=== PATIENT | male | born 1985 | race Caucasian/White ===

== ENCOUNTER → 2018-11-29 | Outpatient (CLI) | payer OTHER ==
--- NOTE | 2018-11-29 21:37 | MR ---
EXAMINATION TYPE: MR knee LT wo con DATE OF EXAM: 11/29/2018 COMPARISON: Plain film 11/14/2018 HISTORY: Lt knee pain TECHNIQUE: Multiplanar, multisequence imaging of the left knee is performed without IV contrast. FINDINGS: MEDIAL MENISCUS: Anterior and posterior horns are intact without tear. LATERAL MENISCUS: Anterior and posterior horns are intact without tear. CRUCIATE LIGAMENTS: The anterior and posterior cruciate ligaments are intact and unremarkable. COLLATERAL LIGAMENTS: The medial collateral ligament is intact and unremarkable. At the level of the popliteus tendon there is some focal probable reactive marrow signal change in t he lateral femoral condyle, some local fluid is present, increased signal present within the popliteu s tendon. EXTENSOR MECHANISM: Visualized quadriceps and patellar tendons are intact. EFFUSION: No significant suprapatellar joint effusion. POPLITEAL CYST: No popliteal/berman cyst. TRICOMPARTMENT SPACES: Normal CARTILAGE: Maintained BONE MARROW SIGNAL: Serpiginous peripheral medullary low signal encompasses foci of fat signal centra lly within the distal metaphyseal left femur and proximal metaphyseal tibia on T1-weighted images, pe ripheral high signal with underlying low signal on fat-saturated T2 sequences with mixed high and low signal consistent with bone infarcts. OTHER: No additional significant abnormality is appreciated. IMPRESSION: Osteonecrosis within the distal femur and proximal tibia. Suspect popliteus tendinosis or possibly pa rtial tear laterally with some local fluid and reactive marrow signal change
== END | disposition home or self-care (01) ==
LOC: RADMRIMAIN 18:32
PROVIDERS: ATTEND Orthopaedic Surgery
DX: M87.852 Other osteonecrosis, left femur (principal); M87.862 Other osteonecrosis, left tibia

== ENCOUNTER → 2019-02-02 | Outpatient (CLI) | payer OTHER ==
[2019-02-02 10:36] LABS: Potassium 4.6 mmol/L (3.5-5.1)
[2019-02-02 10:42] LABS: Basophils # (A) 0.1 k/uL (0-0.2); Basophils % (A) 2 %; Eosinophils # (A) 0.1 k/uL (0-0.7); Eosinophils % (A) 2 %; HCT 38.8 % (39.0-53.0); Lymphocytes # (A) 1.2 k/uL (1.0-4.8); Lymphocytes % (A) 19 %; MCH 40.3 pg (25.0-35.0); MCV 94.9 fL (80.0-100.0); Mean Platelet Volume 7.5; Monocytes # (A) 0.2 k/uL (0-1.0); Monocytes % (A) 3 %; Neutrophils # (A) 4.5 k/uL (1.3-7.7); Neutrophils % (A) 74 %; Platelet Count 309 k/uL (150-450); RBC 4.09 m/uL (4.30-5.90); RDW 12.9 % (11.5-15.5); WBC 6.2 k/uL (3.8-10.6)
[2019-02-02 10:43] LABS: HGB 14.4 gm/dL (13.0-17.5); MCHC 37.1 g/dL (31.0-37.0)
== END | disposition home or self-care (01) ==
LOC: LABPAT 10:06
PROVIDERS: ATTEND Orthopaedic Surgery
DX: Z01.812 Encounter for preprocedural laboratory examination (principal); M23.92 Unspecified internal derangement of left knee
CPT/HCPCS: 80051; 85025

== ENCOUNTER 2019-02-05 12:49 | Day surgery (SDC) | payer OTHER ==
[2019-01-26 14:30] VITALS: BMI 28.0
--- NOTE | 2019-02-04 21:38 | HP ---
HISTORY AND PHYSICAL DATE OF SURGERY: 02/05/2019 Lopez Schmid is a 33-year-old patient seen with progressive left knee pain. We discussed options for treatment. He elected for left knee arthroscopy. Consent was obtained his. PAST MEDICAL HISTORY: Hypertension. PAST SURGICAL HISTORY: Noncontributory. DAILY MEDICATIONS: Antihypertensive. ALLERGIES: None. SOCIAL HISTORY: Denies tobacco use. PHYSICAL EXAMINATION: Evaluation of his left knee, range of motion is -3 to 120. Tenderness along the medial and lateral joint lines. Positive medial Liam's. Positive lateral Liam's. Ligaments stable. Hip rotation without pain. Distal neurovascular exam is intact. Left knee radiographs revealed mild osteoarthritic changes. Left knee MRI revealed osteonecrosis of the distal femur and tibial plateau. IMPRESSION: Internal derangement, left knee with osteochondral tear versus meniscal tear. PLAN: Left knee arthroscopy with partial meniscectomy versus chondroplasty and debridement. MMODL / IJN: [id number] /
[~2019-02-05 12:49] MED LIST: DEXAMETHASONE SOD PHOSPHATE 10 MG/ML 1 ML VIAL IV ONE; HYDROmorphone 0.5 MG/0.5 ML SYRINGE IVP PRN; LACTATED RINGERS 1,000 ML IV SCH; MIDAZOLAM 2 MG/2 ML VIAL IV PRN; ONDANSETRON 4 MG/2 ML VIAL IVP ONE
[2019-02-05] MEDS ORDERED: LIDOCAINE 1% 20 ML VIAL (10MG/ML) FOR IV START INTRADERMA ONE (13:20)
[2019-02-05] MEDS ORDERED: MIDAZOLAM 2 MG/2 ML VIAL IVP ONE ×2 (13:32→13:40)
[2019-02-05] MEDS ORDERED: PROPOFOL 10 MG/ML 20 ML VIAL IV ONE (15:01)
[2019-02-05] MEDS ORDERED: SUCCINYLCHOLINE CHLORIDE 100 MG/5 ML SYR IV ONE (15:01)
[2019-02-05] MEDS ORDERED: BUPIVACAIN-EPI 0.25%-1:200,000 30 ML VIAL INTRAARTIC ONE ×2 (15:01→15:34)
[2019-02-05] MEDS ORDERED: fentaNYL (PF) 50 MCG/ML 2 ML AMP ONE (15:01)
[2019-02-05] MEDS ORDERED: LIDOCAINE 1% INJ 10MG/ML (20 ML MDV) ONE (15:01)
[2019-02-05] MEDS ORDERED: MIDAZOLAM 2 MG/2 ML VIAL ONE (15:01)
[2019-02-05 15:44] VITALS: RESP 16; TEMP 97.7
--- NOTE | 2019-02-05 15:52 | P.OP ---
Date of Procedure: 02/05/19 Preoperative Diagnosis: Internal derangement left knee Postoperative Diagnosis: 1. Tear medial meniscus left knee 2. Medial plica left knee 3. Reactive synovitis medial, lateral and suprapatellar compartments left knee Procedure(s) Performed: 1. Arthroscopic partial medial meniscectomy left knee 2. Arthroscopic resection medial plica left knee 3. Arthroscopic partial synovectomy medial, lateral and suprapatellar compartments left knee Anesthesia: PARVEENA, local Surgeon: Rony Thomas Estimated Blood Loss (ml): 7 Pathology: none sent Condition: stable Disposition: PACU Indications for Procedure: 33-year-old patient seen with progressive left knee pain. After discussing options he elected to proceed with arthroscopy. Operative Findings: See description of procedure Description of Procedure: Patient was taken to the operative suite. Patient underwent a general anesthetic by the department of anesthesia. Patient was given preoperative antibiotics. The left lower extremity was placed in a well-padded arthroscopic leg armijo. The left leg was prepped and draped in the normal sterile orthopedic fashion. A lateral parapatellar and suprapatellar incision was made. Trochars were inserted. Arthroscopy was initiated. Suprapatellar pouch revealed diffuse thick reactive synovitis. The patellofemoral joint appeared to articulate congruently. There was grade 1 chondromalacia of the femoral sulcus. The scope was guided into the medial gutter. There was a medial plica. It did impinge along the medial femoral condyle. Range of motion. The scope was then guided into the medial compartment. A medial parapatellar incision was made. Trocar inserted followed by probe. There was a radial tear posterior horn medial meniscus. There was thick reactive synovitis anteriorly. I performed a partial medial meniscectomy. I performed a partial synovectomy decompressing the reactive synovitis. The residual meniscus was stable. There was good decompression of the synovitis. Scope and probe were then guided into the intercondylar notch. Cruciates were identified, probed and found to be stable. The scope and probe were then guided into lateral compartment. The lateral meniscus was probed and found to be stable. There was thick reactive synovitis anteriorly. There was no significant chondromalacia present. I introduced a motorized shaver and performed a partial synovectomy decompressing the reactive synovitis. The shaver was removed. There was good decompression of the synovitis. The scope was in guided back into the suprapatellar compartment. I introduced a motorized shaver into the suprapatellar compartment. I debrided some piecemeal fragments of meniscus I encountered. I performed a partial synovectomy decompressing the reactive synovitis. I resected that medial plica. The shaver was removed. I took the knee through range of motion. There was good complete resection of plica. There was good decompression of synovitis. I took one more look on the entire knee, no residual debris. Instruments were now removed from the joint. The joint was infiltrated with .25% Marcaine. Steri-Strips were applied to the portal sites. Sterile dressings were applied. The patient was placed into a HUBERT hose. No tourniquet was utilized. The patient was awakened, transferred to a bed and taken to recovery stable satisfactory condition.
[2019-02-05 17:07] VITALS: BP 146/90; PULSE 67
== END 2019-02-05 17:19 | disposition home or self-care (01) ==
LOC: OR 12:49
PROVIDERS: ATTEND Orthopaedic Surgery
DX: M23.222 Derangement of posterior horn of medial meniscus due to old tear or injury, left knee (principal); M67.52 Plica syndrome, left knee; M65.862 Other synovitis and tenosynovitis, left lower leg; I10 Essential (primary) hypertension; Z79.899 Other long term (current) drug therapy
CPT/HCPCS: 29881; J2250; J1100; J0690; J2405

== ENCOUNTER 2019-12-28 15:12 | Emergency (ER) | payer OTHER ==
[2019-12-28] MEDS ORDERED: ACETAMINOPHEN TAB 500 MG TAB PO STA (15:55)
--- NOTE | 2019-12-28 16:02 | ED ---
General Adult HPI - General Source: patient, RN notes reviewed, old records reviewed Mode of arrival: ambulatory Limitations: no limitations <Garo Burnham - Last Filed: 12/28/19 19:34> <Alexis Chun - Last Filed: 12/29/19 14:48> - General Chief complaint: Shortness of Breath Stated complaint: bad pain on r side of chest. Time Seen by Provider: 12/28/19 15:25 - History of Present Illness Initial comments: This is a 34-year-old male who presents to the emergency department with an almost 2 week history of illness. Patient states started off with some back pain that he thought was just from working too much he states he got progressively worse and he stated over work a few days. Patient states after that he started having a fever intermittently since that time. He immediately began having shortness of breath. His ago and that is gotten progressively worse as well. Patient states she does have some diarrhea and he has lost a little bit of his taste and smell. Patient denies any headache patient denies lightheadedness or dizziness. Patient states he has chest pain on the right lateral aspect of his thorax. Patient denies any leg swelling or calf tenderness. (Garo Burnham) - Related Data Home Medications Medication Instructions Recorded Confirmed hydroCHLOROthiazide [Hydrodiuril] 25 mg PO DAILY 01/26/19 12/28/19 Allopurinol [Zyloprim] 150 mg PO DAILY 12/28/19 12/28/19 Previous Rx's Medication Instructions Recorded Dexamethasone [Decadron] 6 mg PO DAILY #10 tablet 12/28/19 Levofloxacin [Levaquin] 500 mg PO DAILY 7 Days #7 tab 12/29/19 Allergies Allergy/AdvReac Type Severity Reaction Status Date / Time No Known Allergies Allergy Verified 12/28/19 19:28 Review of Systems ROS Other: All systems not noted in ROS Statement are negative. <Garo Burnham - Last Filed: 12/28/19 19:34> ROS Other: All systems not noted in ROS Statement are negative. <Alexis Chun - Last Filed: 12/29/19 14:48> ROS Statement: Those systems with pertinent positive or pertinent negative responses have been documented in the HPI. Past Medical History Past Medical History: Hypertension History of Any Multi-Drug Resistant Organisms: None Reported Past Surgical History: No Surgical Hx Reported Additional Past Surgical History / Comment(s): no surgical hx Past Anesthesia/Blood Transfusion Reactions: No Reported Reaction Additional Past Anesthesia/Blood Transfusion Reaction / Comment(s): no anesthesia hx Past Psychological History: No Psychological Hx Reported Smoking Status: Never smoker Past Alcohol Use History: Occasional Past Drug Use History: None Reported - Past Family History Mother Family Medical History: No Reported History <Garo Burnham - Last Filed: 12/28/19 19:34> General Exam Limitations: no limitations <Garo Burnham - Last Filed: 12/28/19 19:34> - General Exam Comments Initial Comments: GENERAL: Patient is well-developed and well-nourished. Patient is nontoxic and well- hydrated and is in mild distress. ENT: Neck is soft and supple. No significant lymphadenopathy is noted. Oropharynx is clear. Moist mucous membranes. Neck has full range of motion without eliciting any pain. EYES: The sclera were anicteric and conjunctiva were pink and moist. Extraocular movements were intact and pupils were equal round and reactive to light. E yelids were unremarkable. PULMONARY: Patient has crackles in the right mid and lower lung CARDIOVASCULAR: There is a regular rate and rhythm without any murmurs gallops or rubs ABDOMEN: Soft and nontender with normal bowel sounds. SKIN: Skin is clear with no lesions or rashes and otherwise unremarkable. NEUROLOGIC: Patient is alert and oriented x3. Cranial nerves II through XII are grossly intact. Motor and sensory are also intact. Normal speech, volume and content. Symmetrical smile. MUSCULOSKELETAL: Normal extremities with adequate strength and full range of motion. LYMPHATICS: No significant lymphadenopathy is noted PSYCHIATRIC: Normal psychiatric evaluation. (Garo Burnham) Course Vital Signs 12/28/19 12/28/19 12/28/19 15:23 16:57 17:53 Temperature 98.6 F 99.8 F H 99.8 F H Pulse Rate 131 H 128 H 125 H Respiratory 31 H 26 H 18 Rate Blood Pressure 124/71 99/86 123/78 O2 Sat by Pulse 89 L 93 L 93 L Oximetry 12/28/19 12/28/19 12/28/19 18:41 19:00 19:32 Temperature 99.7 F H 100.0 F H 98.7 F Pulse Rate 119 H 123 H 129 H Respiratory 18 18 18 Rate Blood Pressure 137/81 123/86 139/99 O2 Sat by Pulse 93 L 92 L 92 L Oximetry Medical Decision Making - Lab Data Result diagrams: 12/28/19 16:01 12/28/19 16:01 <Garo Burnham - Last Filed: 12/28/19 19:34> - Lab Data Result diagrams: 12/28/19 16:01 12/28/19 16:01 <Alexis Chun - Last Filed: 12/29/19 14:48> - Medical Decision Making EKG shows sinus tachycardia at 1 31 bpm MT interval 144 QRS is 84 Q-T intervals 292 QTC is 431 per patient's EKG shows no ST segment elevation or depression. CT shows diffuse bilateral pneumonia quite worse on the right than the left. I spoke to the patient about staying he initially refused but eventually stated he will try to stay. I spoke with Dr. Tatum's nurse practitioner she agreed to admit the patient admitted the patient wrote admitting orders I spoke with Dr. Hagen as well Patient's lactic acid was elevated however I believe secondary to the fact patient was so hypoxic for extended period of time. Patient also received Decadron in the emergency department Patient did receive 2 L of fluid while in the emergency department. After I got the patient admitted and I spoke with Dr. Hagen I went back in the patient room and stated he could get anyone to watch his daughter I spoke with him on multiple occasions and he absolutely refused to stay. Patient will sign out AMA I told him he is likely going to tonight. Patient continued refused to stay and he was oxygenating 91% in bed on 4 L. Nursing witnessed my multiple times to keep the patient in the hospital (TejGaro) 12/29/2019 [id number] I was the attending physician available emergency department when. No blood cultures were obtained for this patient, per minute blood cultures were strep pneumoniae. We did contact the patient with multiple phone calls, ultimately nursing staff was able to discuss the results with the patient who again states that it was not possible for him to come to the emergency department. At this time the recommendation is that the patient returns immediately for IV antibiotics and supportive care. Despite discussion with both the patient he will not present to the emergency department at this time but will accept a prescription for antibiotics. I discussed case with the pharmacist regarding best oral options for strep pneumoniae, felt that Levaquin was the best choice at this time. This prescription has been submitted electronically to [facility] pharmacy (Alexis Chun) - Lab Data Lab Results 12/28/19 12/28/19 12/28/19 Range/Units 16:01 16:01 16:01 WBC 4.4 (3.8-10.6) k/uL RBC 4.15 L (4.30-5.90) m/uL Hgb 13.5 (13.0-17.5) gm/dL Hct 41.1 (39.0-53.0) % MCV 98.9 (80.0-100.0) fL MCH 32.5 (25.0-35.0) pg MCHC 32.8 (31.0-37.0) g/dL RDW 13.7 (11.5-15.5) % Plt Count 154 (150-450) k/uL MPV 9.8 Neutrophils % (Manual) 68 % Band Neuts % (Manual) 13 % Lymphocytes % (Manual) 15 % Monocytes % (Manual) 2 % Metamyelocytes % 2 % Neutrophils # (Manual) 3.50 (1.3-7.7) k/uL Lymphocytes # (Manual) 0.66 L (1.0-4.8) k/uL Monocytes # (Manual) 0.09 (0-1.0) k/uL Metamyelocytes # (Man) 0.09 H (0) k/uL Nucleated RBCs 0 (0-0) /100 WBC Manual Slide Review Performed PT 10.4 (9.0-12.0) sec INR 1.0 (<1.2) APTT 29.7 (22.0-30.0) sec D-Dimer 2.25 H (<0.60) mg/L FEU Sodium 124 L (137-145) mmol/L Potassium 3.6 (3.5-5.1) mmol/L Chloride 88 L (98-107) mmol/L Carbon Dioxide 13 L (22-30) mmol/L Anion Gap 23 mmol/L BUN 27 H (9-20) mg/dL Creatinine 1.19 (0.66-1.25) mg/dL Est GFR (CKD-EPI)AfAm >90 (>60 ml/min/1.73 sqM) Est GFR (CKD-EPI)NonAf 80 (>60 ml/min/1.73 sqM) Glucose 165 H (74-99) mg/dL Lactic Ac Sepsis Rflx Plasma Lactic Acid Guille (0.7-2.0) mmol/L Calcium 8.3 L (8.4-10.2) mg/dL Magnesium 1.5 L (1.6-2.3) mg/dL Ferritin 1305.0 H (22.0-322.0) ng/mL Total Bilirubin 2.3 H (0.2-1.3) mg/dL AST 148 H (17-59) U/L ALT 29 (4-49) U/L Alkaline Phosphatase 83 (38-126) U/L Lactate Dehydrogenase 942 H (313-618) U/L C-Reactive Protein 233.7 H (<10.0) mg/L Total Protein 7.5 (6.3-8.2) g/dL Albumin 3.7 (3.5-5.0) g/dL Procalcitonin (0.02-0.09) ng/mL Coronavirus (PCR) (Not Detectd) Influenza Type A RNA (Not Detectd) Influenza Type B (PCR) (Not Detectd) 12/28/19 12/28/19 12/28/19 Range/Units 16:01 16:01 16:01 WBC (3.8-10.6) k/uL RBC (4.30-5.90) m/uL Hgb (13.0-17.5) gm/dL Hct (39.0-53.0) % MCV (80.0-100.0) fL MCH (25.0-35.0) pg MCHC (31.0-37.0) g/dL RDW (11.5-15.5) % Plt Count (150-450) k/uL MPV Neutrophils % (Manual) % Band Neuts % (Manual) % Lymphocytes % (Manual) % Monocytes % (Manual) % Metamyelocytes % % Neutrophils # (Manual) (1.3-7.7) k/uL Lymphocytes # (Manual) (1.0-4.8) k/uL Monocytes # (Manual) (0-1.0) k/uL Metamyelocytes # (Man) (0) k/uL Nucleated RBCs (0-0) /100 WBC Manual Slide Review PT (9.0-12.0) sec INR (<1.2) APTT (22.0-30.0) sec D-Dimer (<0.60) mg/L FEU Sodium (137-145) mmol/L Potassium (3.5-5.1) mmol/L Chloride (98-107) mmol/L Carbon Dioxide (22-30) mmol/L Anion Gap mmol/L BUN (9-20) mg/dL Creatinine (0.66-1.25) mg/dL Est GFR (CKD-EPI)AfAm (>60 ml/min/1.73 sqM) Est GFR (CKD-EPI)NonAf (>60 ml/min/1.73 sqM) Glucose (74-99) mg/dL Lactic Ac Sepsis Rflx Plasma Lactic Acid Guille 7.4 H* (0.7-2.0) mmol/L Calcium (8.4-10.2) mg/dL Magnesium (1.6-2.3) mg/dL Ferritin (22.0-322.0) ng/mL Total Bilirubin (0.2-1.3) mg/dL AST (17-59) U/L ALT (4-49) U/L Alkaline Phosphatase (38-126) U/L Lactate Dehydrogenase (313-618) U/L C-Reactive Protein (<10.0) mg/L Total Protein (6.3-8.2) g/dL Albumin (3.5-5.0) g/dL Procalcitonin 26.57 H (0.02-0.09) ng/mL Coronavirus (PCR) Not Detected (Not Detectd) Influenza Type A RNA Not Detected (Not Detectd) Influenza Type B (PCR) Not Detected (Not Detectd) 12/28/19 Range/Units 17:18 WBC (3.8-10.6) k/uL RBC (4.30-5.90) m/uL Hgb (13.0-17.5) gm/dL Hct (39.0-53.0) % MCV (80.0-100.0) fL MCH (25.0-35.0) pg MCHC (31.0-37.0) g/dL RDW (11.5-15.5) % Plt Count (150-450) k/uL MPV Neutrophils % (Manual) % Band Neuts % (Manual) % Lymphocytes % (Manual) % Monocytes % (Manual) % Metamyelocytes % % Neutrophils # (Manual) (1.3-7.7) k/uL Lymphocytes # (Manual) (1.0-4.8) k/uL Monocytes # (Manual) (0-1.0) k/uL Metamyelocytes # (Man) (0) k/uL Nucleated RBCs (0-0) /100 WBC Manual Slide Review PT (9.0-12.0) sec INR (<1.2) APTT (22.0-30.0) sec D-Dimer (<0.60) mg/L FEU Sodium (137-145) mmol/L Potassium (3.5-5.1) mmol/L Chloride (98-107) mmol/L Carbon Dioxide (22-30) mmol/L Anion Gap mmol/L BUN (9-20) mg/dL Creatinine (0.66-1.25) mg/dL Est GFR (CKD-EPI)AfAm (>60 ml/min/1.73 sqM) Est GFR (CKD-EPI)NonAf (>60 ml/min/1.73 sqM) Glucose (74-99) mg/dL Lactic Ac Sepsis Rflx Y Plasma Lactic Acid Guille (0.7-2.0) mmol/L Calcium (8.4-10.2) mg/dL Magnesium (1.6-2.3) mg/dL Ferritin (22.0-322.0) ng/mL Total Bilirubin (0.2-1.3) mg/dL AST (17-59) U/L ALT (4-49) U/L Alkaline Phosphatase (38-126) U/L Lactate Dehydrogenase (313-618) U/L C-Reactive Protein (<10.0) mg/L Total Protein (6.3-8.2) g/dL Albumin (3.5-5.0) g/dL Procalcitonin (0.02-0.09) ng/mL Coronavirus (PCR) (Not Detectd) Influenza Type A RNA (Not Detectd) Influenza Type B (PCR) (Not Detectd) Critical Care Time Critical Care Time: Yes Total Critical Care Time: 35 <Garo Burnham - Last Filed: 12/28/19 19:34> Disposition Is patient prescribed a controlled substance at d/c from ED?: No Time of Disposition: 19:00 <Garo Burnham - Last Filed: 12/28/19 19:34> <Alexis Chun - Last Filed: 12/29/19 14:48> Clinical Impression: Respiratory distress, Pneumonia due to COVID-19 virus Disposition: Left Against Medical Advice Prescriptions: Dexamethasone [Decadron] 6 mg PO DAILY #10 tablet Levofloxacin [Levaquin] 500 mg PO DAILY 7 Days #7 tab Referrals: Arlen Lindsay DO [Primary Care Provider] - 1-2 days
[2019-12-28] MEDS ORDERED: IBUPROFEN 600 MG TAB PO STA (16:03)
[2019-12-28 17:04] LABS: Partial Thromboplastin Time 29.7 sec (22.0-30.0); Prothrombin Time 10.4 sec (9.0-12.0)
[2019-12-28 17:05] LABS: HCT 41.1 % (39.0-53.0); HGB 13.5 gm/dL (13.0-17.5); MCH 32.5 pg (25.0-35.0); MCHC 32.8 g/dL (31.0-37.0); MCV 98.9 fL (80.0-100.0); Mean Platelet Volume 9.8; Platelet Count 154 k/uL (150-450); RBC 4.15 m/uL (4.30-5.90); RDW 13.7 % (11.5-15.5); WBC 4.4 k/uL (3.8-10.6)
[2019-12-28 17:15] LABS: ALT 29 U/L (4-49); AST 148 U/L (17-59); African American GFR (CKD) >90 (>60 ml/min/1.73 sqM); Albumin 3.7 g/dL (3.5-5.0); Alkaline Phosphatase 83 U/L (38-126); Anion Gap 23 mmol/L; Blood Urea Nitrogen 27 mg/dL (9-20); Calcium 8.3 mg/dL (8.4-10.2); Carbon Dioxide 13 mmol/L (22-30); Chloride 88 mmol/L (98-107); Glucose 165 mg/dL (74-99); LDH 942 U/L (313-618); Magnesium 1.5 mg/dL (1.6-2.3); Non-African American GFR(CKD) 80 (>60 ml/min/1.73 sqM); Potassium 3.6 mmol/L (3.5-5.1); Sodium 124 mmol/L (137-145); Total Bilirubin 2.3 mg/dL (0.2-1.3); Total Protein 7.5 g/dL (6.3-8.2)
[2019-12-28 17:16] LABS: D-Dimer 2.25 mg/L FEU (<0.60)
[2019-12-28 17:23] LABS: Band Neutrophils % 13 %; Lymphocytes # (M) 0.66 k/uL (1.0-4.8); Metamyelocytes # (M) 0.09 k/uL (0); Metamyelocytes % 2 %; Monocytes # (M) 0.09 k/uL (0-1.0); Neutrophils % (M) 68 %; Nucleated Red Blood Cells 0 /100 WBC (0-0); Total Cells Counted 100
[2019-12-28 17:29] LABS: SARS-CoV-2 RNA Rapid Abbott Not Detected (Not Detectd)
[2019-12-28] MEDS ORDERED: SODIUM CHLORIDE 0.9% 2,000 ML IV STA (17:29)
[2019-12-28 17:37] LABS: C Reactive Protein 233.7 mg/L (<10.0)
[2019-12-28 17:55] VITALS: RESP 18
[2019-12-28] MEDS ORDERED: SODIUM CHLORIDE 0.9% 2,000 ML IV ONE (18:10)
[2019-12-28] MEDS ORDERED: dexAMETHasone 2 MG TAB PO STA (18:11)
--- NOTE | 2019-12-28 18:18 | CT ---
EXAMINATION TYPE: CT angio chest DATE OF EXAM: 12/28/2019 5:41 PM COMPARISON: None available. HISTORY: Cough, SOB, fever, elevated d-dimer CT DLP: 518.7 mGycm Automated exposure control for dose reduction was used. CONTRAST: CTA scan of the thorax is performed with IV Contrast, patient injected with 100 mL of Isovue 370, pul monary embolism protocol. MIP images are created and reviewed. FINDINGS: LUNGS: There are bilateral diffuse moderate to marked consolidation with patchy opacities most pronou nced in the right upper lobe. There is mild involvement of the left lower lobe. There is small right pleural effusion. No pneumothorax. MEDIASTINUM: There is satisfactory enhancement of the pulmonary artery to be main right and left stan adama without evidence of pulmonary embolus. There are scattered borderline to mildly enlarged lymph nodes, may be reactive. No pericardial effusion is seen. OTHER: Hepatomegaly with steatosis is seen. IMPRESSION: BILATERAL DIFFUSE PATCHY CONSOLIDATION AND OPACITIES, MOST PRONOUNCED IN THE RIGHT UPPER LOBE. CORREL ATE FOR COVID PNEUMONIA. NO EVIDENCE OF CENTRAL PE. (EVALUATION TO THE LEVEL OF THE MAIN ARTERIES). SMALL RIGHT PLEURAL EFFUSION.
[2019-12-28] MEDS ORDERED: ACETAMINOPHEN TAB 325 MG TAB PO PRN (19:03)
[2019-12-28] MEDS ORDERED: NALOXONE 0.4 MG/ML 1 ML VIAL IV PRN (19:03)
[2019-12-28] MEDS ORDERED: SODIUM CHLORIDE 0.9% 1,000 ML IV SCH (19:15)
[2019-12-28 21:12] VITALS: BP 139/99; PULSE 129; TEMP 98.7
[2019-12-29] MEDS ORDERED: dexAMETHasone 2 MG TAB PO SCH (09:00)
[2019-12-29] MEDS ORDERED: CISATRACURIUM 2 MG/ML 5 ML VIAL IV ONE ×2 (19:09→20:45)
[2019-12-29] MEDS ORDERED: fentaNYL (PF) 1,000 MCG in SODIUM CHLORIDE 0.9% 80 ML IV SCH (19:15)
[2019-12-29] MEDS ORDERED: AMIODARONE 360 MG in DEXTROSE 5% IN WATER 200 ML IV ONE ×2 (19:58)
== END 2019-12-28 19:35 | disposition left against medical advice (07) ==
LOC: EC 15:12 → UNDOADMIN 19:03 → 2SICU 19:03 → EC 19:35
DX: U07.1 COVID-19 (principal); J12.89 Other viral pneumonia; I10 Essential (primary) hypertension; Z79.899 Other long term (current) drug therapy
CPT/HCPCS: 36415; 93005; 85379; 80053; 82728; 83605; 83615; 83735; 85025; 85610; 85730; 86140; 87040; 87077; 87186; 87502; 84145; 87635; 71275; 99291; 96365; 96361; J0696; J8540; Q9967

== ENCOUNTER 2019-12-29 15:30 | Inpatient (IN) | payer OTHER ==
[2019-12-29 15:37] VITALS: TEMP 98.9
[2019-12-29] MEDS ORDERED: SODIUM CHLORIDE 0.9% 1,000 ML IV STA (15:44)
[2019-12-29] MEDS ORDERED: VANCOMYCIN IV PER PHARMACY 1 EACH MISC MISCELLANE PRN (15:50)
--- NOTE | 2019-12-29 16:11 | ED ---
SOB HPI - General Source: patient Mode of arrival: wheelchair Limitations: no limitations <Rosa Varma - Last Filed: 12/29/19 16:06> <Alexis Chun - Last Filed: 12/29/19 17:29> - General Chief Complaint: Shortness of Breath Stated Complaint: Blood Infection Time Seen by Provider: 12/29/19 15:42 - History of Present Illness Initial Comments: Patient is a 34-year-old male presenting to emergency Department with complaints of shortness of breath with fever on and off for the last 3 days. Patient was seen in the ER yesterday and left AMA after urgently being asked to stay. He was called back today secondary to positive blood cultures for strep pneumoniae. He still does not want to be here. Patient continues to be short of breath, coughing, and nauseous. He states he is having trouble catching his breath and feels like his heart is racing. Denies taking any Tylenol or Motrin today. He denies history of asthma or COPD. He has no further complaints. Upon arrival to the ER, he is afebrile, pulse is 125, respiratory rate 28, 84% on room air, blood pressure is 169/79. (Rosa Varma) - Related Data Home Medications Medication Instructions Recorded Confirmed hydroCHLOROthiazide [Hydrodiuril] 25 mg PO DAILY 01/26/19 12/29/19 Allopurinol [Zyloprim] 150 mg PO DAILY 12/28/19 12/29/19 Previous Rx's Medication Instructions Recorded Dexamethasone [Decadron] 6 mg PO DAILY #10 tablet 12/28/19 Levofloxacin [Levaquin] 500 mg PO DAILY 7 Days #7 tab 12/29/19 Allergies Allergy/AdvReac Type Severity Reaction Status Date / Time No Known Allergies Allergy Verified 12/29/19 17:16 Review of Systems ROS Other: All systems not noted in ROS Statement are negative. <Rosa Varma - Last Filed: 12/29/19 16:06> ROS Other: All systems not noted in ROS Statement are negative. <Alexis Chun - Last Filed: 12/29/19 17:29> ROS Statement: Those systems with pertinent positive or pertinent negative responses have been documented in the HPI. Past Medical History Past Medical History: Hypertension, Pneumonia Additional Past Medical History / Comment(s): psoriasis,hemochromotosis History of Any Multi-Drug Resistant Organisms: None Reported Past Surgical History: No Surgical Hx Reported Additional Past Surgical History / Comment(s): no surgical hx Past Anesthesia/Blood Transfusion Reactions: No Reported Reaction Additional Past Anesthesia/Blood Transfusion Reaction / Comment(s): no anesthesia hx Past Psychological History: No Psychological Hx Reported Smoking Status: Never smoker Past Alcohol Use History: Occasional Past Drug Use History: None Reported - Past Family History Mother Family Medical History: No Reported History <Rosa Varma - Last Filed: 12/29/19 16:06> General Exam Limitations: no limitations <Rosa Varma - Last Filed: 12/29/19 16:06> - General Exam Comments Initial Comments: GENERAL: Patient looks toxic, in moderate distress, color is pale, working to breathe. HEAD: Atraumatic, normocephalic. EYES: Pupils equal round and reactive to light, extraocular movements intact, sclera anicteric, conjunctiva are normal. Eyelids were unremarkable. ENT: TMs normal, nares patent, oropharynx clear without exudates. Moist mucous membranes. NECK: Normal range of motion, supple without lymphadenopathy or JVD. LUNGS: Labored respirations, working to breathe, diminished sounds, scattered wheezes HEART: Tachycardia rate and rhythm without murmurs, rubs or gallops. ABDOMEN: Soft, nontender, normoactive bowel sounds. No guarding, no rebound. No masses appreciated. : Deferred MUSCULOSKELETAL: Normal extremities with adequate strength and normal range of motion, no pitting or edema. No clubbing or cyanosis. NEUROLOGICAL: Patient is alert and oriented x 3. Motor and sensory are also intact. Cranial nerves II through XII grossly intact. Symmetrical smile. Normal speech, normal gait. PSYCH: Normal mood, normal affect. SKIN: Warm, Dry, normal turgor, no rashes or lesions noted. (Rosa Varma) Course <ChinoAlexis leone Sury - Last Filed: 12/29/19 17:29> Vital Signs 12/29/19 12/29/19 12/29/19 15:34 16:05 16:13 Temperature 98.9 F Pulse Rate 125 H 125 H Respiratory 28 H 18 28 H Rate Blood Pressure 169/79 138/88 O2 Sat by Pulse 84 L 87 L Oximetry - Reevaluation(s) Reevaluation #1: 12/29/19 16:39 EKG: Sinus tachycardia, left atrial enlargement, rate of 124, OR interval 152, QRS duration 86, QTC 456 (Alexis Chun) Medical Decision Making - Lab Data Result diagrams: 12/29/19 16:06 12/29/19 16:06 <Alexis Chun - Last Filed: 12/29/19 17:29> - Medical Decision Making 34-year-old male presenting for evaluation of cough and dyspnea. Patient had large bilateral pneumonia found on x-ray yesterday. His workup was initiated again today for pneumonia and sepsis as well as coronavirus 19. He did have blood cultures which grew strep pneumoniae. He started on ceftriaxone and vancomycin awaiting susceptibility. X-ray confirms large bilateral pneumonia. Coronavirus has been tested twice and has been negative twice. Patient has le ukopenia with a white blood cell count 2.6. He has hyponatremia sodium 123. He is acidotic with a lactic acid of 5.9 which is improved from yesterday of 7.4. He is in acute renal failure with a creatinine 1.9. He is continued on IV antibiotics, IV fluid. I have discussed case with Dr. Jeffrey who will admit. There are currently no ICU beds available he will be admitted to a monitored stepdown bed. Pulmonology placed on consult. (Alexis Chun) - Lab Data Lab Results 12/29/19 12/29/19 12/29/19 Range/Units 16:06 16:06 16:06 WBC 2.6 L (3.8-10.6) k/uL RBC 4.03 L (4.30-5.90) m/uL Hgb 12.8 L (13.0-17.5) gm/dL Hct 40.0 (39.0-53.0) % MCV 99.3 (80.0-100.0) fL MCH 31.8 (25.0-35.0) pg MCHC 32.0 (31.0-37.0) g/dL RDW 13.9 (11.5-15.5) % Plt Count 103 L (150-450) k/uL MPV 11.1 Neutrophils % (Manual) 74 % Band Neuts % (Manual) 3 % Lymphocytes % (Manual) 10 % Monocytes % (Manual) 3 % Metamyelocytes % 6 % Myelocytes % 4 % Neutrophils # (Manual) 2.00 (1.3-7.7) k/uL Lymphocytes # (Manual) 0.26 L (1.0-4.8) k/uL Monocytes # (Manual) 0.08 (0-1.0) k/uL Metamyelocytes # (Man) 0.16 H (0) k/uL Myelocytes # (Manual) 0.10 H (0) k/uL Nucleated RBCs 0 (0-0) /100 WBC Manual Slide Review Performed Toxic Granulation Present RBC Morphology Normal PT 10.7 (9.0-12.0) sec INR 1.0 (<1.2) APTT 26.6 (22.0-30.0) sec Sodium 123 L (137-145) mmol/L Potassium 3.4 L (3.5-5.1) mmol/L Chloride 86 L (98-107) mmol/L Carbon Dioxide 16 L (22-30) mmol/L Anion Gap 21 mmol/L BUN 41 H (9-20) mg/dL Creatinine 1.90 H (0.66-1.25) mg/dL Est GFR (CKD-EPI)AfAm 52 (>60 ml/min/1.73 sqM) Est GFR (CKD-EPI)NonAf 45 (>60 ml/min/1.73 sqM) Glucose 180 H (74-99) mg/dL Plasma Lactic Acid Guille (0.7-2.0) mmol/L Calcium 8.0 L (8.4-10.2) mg/dL Magnesium 1.8 (1.6-2.3) mg/dL Total Bilirubin 2.5 H (0.2-1.3) mg/dL AST 361 H (17-59) U/L ALT 38 (4-49) U/L Alkaline Phosphatase 112 (38-126) U/L Lactate Dehydrogenase 1816 H (313-618) U/L C-Reactive Protein 64.7 H (<10.0) mg/L Total Protein 7.1 (6.3-8.2) g/dL Albumin 3.3 L (3.5-5.0) g/dL Coronavirus (PCR) (Not Detectd) 12/29/19 12/29/19 Range/Units 16:06 16:06 WBC (3.8-10.6) k/uL RBC (4.30-5.90) m/uL Hgb (13.0-17.5) gm/dL Hct (39.0-53.0) % MCV (80.0-100.0) fL MCH (25.0-35.0) pg MCHC (31.0-37.0) g/dL RDW (11.5-15.5) % Plt Count (150-450) k/uL MPV Neutrophils % (Manual) % Band Neuts % (Manual) % Lymphocytes % (Manual) % Monocytes % (Manual) % Metamyelocytes % % Myelocytes % % Neutrophils # (Manual) (1.3-7.7) k/uL Lymphocytes # (Manual) (1.0-4.8) k/uL Monocytes # (Manual) (0-1.0) k/uL Metamyelocytes # (Man) (0) k/uL Myelocytes # (Manual) (0) k/uL Nucleated RBCs (0-0) /100 WBC Manual Slide Review Toxic Granulation RBC Morphology PT (9.0-12.0) sec INR (<1.2) APTT (22.0-30.0) sec Sodium (137-145) mmol/L Potassium (3.5-5.1) mmol/L Chloride (98-107) mmol/L Carbon Dioxide (22-30) mmol/L Anion Gap mmol/L BUN (9-20) mg/dL Creatinine (0.66-1.25) mg/dL Est GFR (CKD-EPI)AfAm (>60 ml/min/1.73 sqM) Est GFR (CKD-EPI)NonAf (>60 ml/min/1.73 sqM) Glucose (74-99) mg/dL Plasma Lactic Acid Guille 5.9 H* (0.7-2.0) mmol/L Calcium (8.4-10.2) mg/dL Magnesium (1.6-2.3) mg/dL Total Bilirubin (0.2-1.3) mg/dL AST (17-59) U/L ALT (4-49) U/L Alkaline Phosphatase (38-126) U/L Lactate Dehydrogenase (313-618) U/L C-Reactive Protein (<10.0) mg/L Total Protein (6.3-8.2) g/dL Albumin (3.5-5.0) g/dL Coronavirus (PCR) Not Detected (Not Detectd) Critical Care Time Critical Care Time: Yes Total Critical Care Time: 35 <Alexis Chun - Last Filed: 12/29/19 17:29> Disposition <Rosa Varma - Last Filed: 12/29/19 16:06> Is patient prescribed a controlled substance at d/c from ED?: No Decision to Admit Reason: Admit from EC Decision Date: 12/29/19 Decision Time: 17:29 <Alexis Chun - Last Filed: 12/29/19 17:29> Clinical Impression: Community acquired pneumonia, Sepsis with acute hypoxic respiratory failure Disposition: ADMITTED IP TO THIS [facility] Condition: Serious Referrals: Arlen Lindsay DO [Primary Care Provider] - 1-2 days
--- NOTE | 2019-12-29 16:13 | XR ---
EXAMINATION TYPE: XR chest 1V portable DATE OF EXAM: 12/29/2019 COMPARISON: CT 12/28/2019. HISTORY: Follow-up shortness of breath. TECHNIQUE: Single frontal view of the chest is obtained. FINDINGS: There is redemonstrated bilateral consolidations in the upper to mid lungs. Additional rig ht basilar opacity is seen. No significant pleural effusion, or pneumothorax seen. The cardiac silho uette size is within normal limits. The osseous structures are intact. IMPRESSION: As above.
[2019-12-29] MEDS ORDERED: VANCOMYCIN 1,750 MG in SODIUM CHLORIDE 0.9% 500 ML 500 ML IVPB ONE (16:15)
[2019-12-29 16:39] LABS: HGB 12.8 gm/dL (13.0-17.5); MCH 31.8 pg (25.0-35.0); MCV 99.3 fL (80.0-100.0); Mean Platelet Volume 11.1; Platelet Count 103 k/uL (150-450); RBC 4.03 m/uL (4.30-5.90); RDW 13.9 % (11.5-15.5); WBC 2.6 k/uL (3.8-10.6)
[2019-12-29 16:43] LABS: Partial Thromboplastin Time 26.6 sec (22.0-30.0); Prothrombin Time 10.7 sec (9.0-12.0)
[2019-12-29 16:50] LABS: Albumin 3.3 g/dL (3.5-5.0); C Reactive Protein 64.7 mg/L (<10.0); Magnesium 1.8 mg/dL (1.6-2.3); Potassium 3.4 mmol/L (3.5-5.1); Total Bilirubin 2.5 mg/dL (0.2-1.3); Total Protein 7.1 g/dL (6.3-8.2)
[2019-12-29 17:11] LABS: Band Neutrophils % 3 %; Lymphocytes # (M) 0.26 k/uL (1.0-4.8); Metamyelocytes # (M) 0.16 k/uL (0); Metamyelocytes % 6 %; Monocytes # (M) 0.08 k/uL (0-1.0); Myelocytes % 4 %; Neutrophils % (M) 74 %; Nucleated Red Blood Cells 0 /100 WBC (0-0); Total Cells Counted 100; Toxic Granulation Present
[2019-12-29] MEDS ORDERED: IPRATROPIUM-ALBUTEROL 3 ML NEB INHALATION PRN (17:22)
[2019-12-29] MEDS ORDERED: PNEUMONIA PROTOCOL UTILIZED 1 EACH MISC PO PRN (17:22)
[2019-12-29] MEDS ORDERED: AZITHROMYCIN 500 MG in SODIUM CHLORIDE 0.9% 250 ML IVPB STA (17:22)
[2019-12-29] MEDS ORDERED: SODIUM CHLORIDE 0.9% 1,000 ML IV ONE ×2 (17:25→20:58)
[2019-12-29] MEDS ORDERED: LORazepam 1 MG TAB PO STA (17:25)
[2019-12-29] MEDS ORDERED: IPRATROPIUM-ALBUTEROL 3 ML NEB INHALATION STA (17:25)
[2019-12-29] MEDS ORDERED: ALBUTEROL NEBULIZED 2.5 MG/3 ML INHALATION STA (17:25)
[2019-12-29] MEDS ORDERED: SODIUM CHLORIDE 0.9% 2,000 ML IV ONE (18:17)
[2019-12-29] MEDS ORDERED: LORazepam 2 MG/ML INJ IV STA (18:27)
[2019-12-29] MEDS ORDERED: LEVOFLOXACIN 750MG-D5W PMX 750 MG in DEXTROSE/WATER 1 150ML.BAG IVPB SCH (18:30)
[2019-12-29] MEDS ORDERED: MIDAZOLAM 1 MG/ML 5 ML VIAL IV STA ×2 (19:10→20:19)
--- NOTE | 2019-12-29 19:42 | XR ---
EXAMINATION TYPE: XR chest 1V portable DATE OF EXAM: 12/29/2019 COMPARISON: Earlier same day. HISTORY: Central line placement. TECHNIQUE: Single frontal view of the chest is obtained. FINDINGS: There is placement of an endotracheal tube terminating 3.4 cm above the bryson, left IJ cat heter with tip overlying the caudal SVC and NG tube coursing below the diaphragm. There is unchanged bilateral consolidation in the right upper and left mid to lower lungs with additional patchy opaciti es elsewhere. No significant pleural effusion, or pneumothorax seen. The cardiac silhouette size is within normal limits. The osseous structures are intact. IMPRESSION: As above.
[2019-12-29 19:53] LABS: ABG HCO3 18 mmol/L (21-25); ABG Oxygen Saturation 81.7 % (94-97); ABG PCO2 65 mmHg (35-45); ABG PO2 65 mmHg (83-108); ABG TCO2 20 mmol/L (19-24); Allen Test Performed? Yes
[2019-12-29 19:57] LABS: ABG PH 7.06 (7.35-7.45)
[2019-12-29] MEDS ORDERED: IPRATROPIUM-ALBUTEROL 3 ML NEB INHALATION SCH (20:00)
[2019-12-29] MEDS ORDERED: AMIODARONE 360 MG in DEXTROSE 5% IN WATER 200 ML IV ONE ×2 (20:15)
[2019-12-29] MEDS ORDERED: fentaNYL (PF) 1,000 MCG in SODIUM CHLORIDE 0.9% 80 ML IV SCH (20:45)
[2019-12-29] MEDS ORDERED: CISATRACURIUM 2 MG/ML 5 ML VIAL IV ONE ×3 (20:45→22:30)
[2019-12-29 20:53] VITALS: RESP 34
[2019-12-29 20:55] LABS: ABG Base Excess -8.4 mmol/L; ABG HCO3 21 mmol/L (21-25); ABG PCO2 64 mmHg (35-45); ABG PO2 60 mmHg (83-108); ABG TCO2 23 mmol/L (19-24); Allen Test Performed? Yes
[2019-12-29] MEDS ORDERED: CEFEPIME 2 GM in SODIUM CHLORIDE 0.9% 100 ML IVPB ONE (21:00)
[2019-12-29 21:02] LABS: ABG PH 7.12 (7.35-7.45)
--- NOTE | 2019-12-29 21:22 | P.CNPUL ---
History of Present Illness Consult date: 12/29/19 Reason for consult: pneumonia History of present illness: A 34-year-old male patient , known history of hemochromatosis, and history of psoriasis maintained on a biologic agent on outpatient basis, who came into the emergency department yesterday with fatigue tiredness and shortness of breath and hypoxemia and he was diagnosed having bilateral pneumonia. He was quite ill with extensive bilateral consolidation consistent with pneumonia. Apparently symptoms of been going on for the past 2 weeks and the patient was getting progressively more ill and over the past few days he became more short of breath. He was having intermittent fever. He did have some diarrhea also. He has lost a bit of this test and smell. He denies having any headache. I reviewed the CAT scan of the chest was done yesterday on 12/28/2019. The patient has bilateral diffuse patchy consolidation or opacities more prominent in the right upper lobe area. His coronavirus 19 testing came back negative. He is CBC showed normal white count from yesterday with a white cell count of 4.4. He had a lymphopenia. He has atelectatic as level of 7.4. His sodium l evel was 124. BUN was 27 and creatinine was 1.1. His pro-calcitonin level was 26.5. His ferritin was 02/10/2004 with an LDH level of 945. The patient was advised to stay in the hospital and he signed himself AGAINST MEDICAL ADVICE and he went home. He came back today and his blood work showed a sodium level of 123 with a potassium level of 3.4 and a creatinine of 1.9 which is worse compared to yesterday consistent with acute kidney injury. Lactic acid level is at 5.9 which is comparable to yesterday. Note that his pro-calcitonin level from yesterday was 26.5. He had another Covid 19 testing that came back negative. Influenza screen was also negative. Coagulation profile is within n ormal limits. His chest x-ray showed that he demonstrated bilateral consolidations upper lobes in the mid lungs bilaterally. His white cell count is down to 2.6. The patient has 3% bandemia and 13% bandemia yesterday. In the emergency department, the patient was started on IV fluids. The patient was started on a combination of Rocephin and Zithromax and vancomycin. within half an hour or an hour of arrival to the emergency, the patient's condition decompensated and the patient became tachycardic with a heart rate of 160 sinus, tachypneic and his respiratory rate was in the high 40s and he was diaphoretic and sweaty and hypoxic even while being on a BiPAP. He was also having episodes of emesis. At that point, I saw the patient in emergency department trauma room. He was severely diaphoretic and in respiratory failure. I had a brief discussion with the mother. I explained to her the importance of intubation mechanical ventilation to support his breathing. Immediately, the patient was intubated in the trauma room. I performed intubation process myself. He was intubated by #8 orotracheal tube. During the process, the patient was given propofol, Versed, succinylcholine for paralysis. Post intubation, the patient had quite low oxygen saturation. The patient saturation was as low as 72%. Accordingly, the the patient was started on paralytics. The patient was placed on a low tidal volume high PEEP on him second mechanical ventilation and with bedside adjustments, end up with a PEEP of 22, respiratory rate of 34, FiO2 100%, tidal volume of 370 with a inspiratory pause of 0.3 seconds. The E/A ratio was approaching 1-1. At that point, blood gases was done that showed a pH of 7. PH of 7.06 with a pCO2 of 65 and pO2 of 65. The patient was given a total of 4 L of IV fluids. Resuscitation was continued in the burst department. The patient did not require any pressors. The patient was given 2 A of sodium bicarb in regards to his metabolic and respiratory acidosis. We will allow permissive hypercapnia. The repeat blood gases was done that showed a pH of 7.12 with a pCO2 of 64 and pO2 of 60. A triple lumen catheter was inserted. An outlying catheter was established. I had an obvious consented the patient will have ongoing difficulties with oxygenation. Post intubation chest x-ray showed diffuse but the pulmonary infiltrates consistent with pneumonia. I did contact the ECMO team at [facility] in [place] and discussed with them the poss ibility of toxicities patient for a VV ECMO. noted post intubation, the patient also with into atrial fibrillation with rapid ventricular response. Heart rate was in the 170s. He was given amiodarone 150 mg IV push and following that started on a maintenance of 0.5 mg of amiodarone per minutes. Upon further review, the patient's blood cultures that were obtained yesterday here in the emergency department around positive for Streptococcus pneumonia. Review of Systems ROS unobtainable: due to endotracheal tube Constitutional: Reports chills, Reports fatigue, Reports fever, Reports lethargy, Reports poor appetite, Reports weakness, Reports weight loss Eyes: denies as per HPI, denies blurred vision, denies bulging eye, denies decreased vision, denies diplopia, denies discharge, denies dry eye, denies irritation, denies itching, denies pain, denies photophobia, denies loss of peripheral vision, denies loss of vision, denies tunnel vision/blind spots Ears: deny: decreased hearing, ear discharge, earache, tinnitus Ears, nose, mouth and throat: Denies headache, Denies sore throat Cardiovascular: Reports decreased exercise tolerance, Reports dyspnea on exertion Respiratory: Reports cough, Reports dyspnea Gastrointestinal: Reports as per HPI Genitourinary: Reports as per HPI Musculoskeletal: Reports as per HPI Musculoskeletal: absent: ankle pain, ankle stiffness, ankle swelling Integumentary: Reports as per HPI Neurological: Reports as per HPI, Reports weakness Psychiatric: Reports as per HPI Endocrine: Reports as per HPI, Reports fatigue Hematologic/Lymphatic: Reports as per HPI Allergic/Immunologic: Reports as per HPI Past Medical History Past Medical History: Hypertension, Pneumonia Additional Past Medical History / Comment(s): psoriasis,hemochromotosis, questionable alcoholism History of Any Multi-Drug Resistant Organisms: None Reported Past Surgical History: No Surgical Hx Reported Additional Past Surgical History / Comment(s): no surgical hx Past Anesthesia/Blood Transfusion Reactions: No Reported Reaction Additional Past Anesthesia/Blood Transfusion Reaction / Comment(s): no anesthesia hx Past Psychological History: No Psychological Hx Reported Smoking Status: Never smoker Past Alcohol Use History: Occasional Past Drug Use History: None Reported - Past Family History Mother Family Medical History: No Reported History Medications and Allergies Home Medications Medication Instructions Recorded Confirmed Type hydroCHLOROthiazide [Hydrodiuril] 25 mg PO DAILY 01/26/19 12/29/19 History Allopurinol [Zyloprim] 150 mg PO DAILY 12/28/19 12/29/19 History Dexamethasone [Decadron] 6 mg PO DAILY #10 tablet 12/28/19 12/29/19 Rx Levofloxacin [Levaquin] 500 mg PO DAILY 7 Days #7 tab 12/29/19 12/29/19 Rx Allergies Allergy/AdvReac Type Severity Reaction Status Date / Time No Known Allergies Allergy Verified 12/29/19 17:16 Physical Exam Vitals: Vital Signs Temp Pulse Resp BP Pulse Ox 12/29/19 18:05 120 H 32 H 150/101 95 12/29/19 17:57 123 H 12/29/19 17:56 125 H 40 H 179/112 90 L 12/29/19 17:51 125 H 12/29/19 16:13 125 H 28 H 138/88 87 L 12/29/19 16:05 18 12/29/19 15:34 98.9 F 125 H 28 H 169/79 84 L Intake and Output 12/29/19 12/29/19 12/29/19 06:59 14:59 22:59 Other: Weight 102.058 kg Gen. appearance obese, comfortable sedated and paralyzed. The patient sedated with a combination of fentanyl and propofol and the patient is also receiving Nimbex and orotracheal tube are both in place. Head exam was generally normal. There was no scleral icterus or corneal arcus. Mucous membranes were moist. The mucous membranes are quite dry. Neck was supple and without jugular venous distension, thyromegaly, or carotid bruits. Carotids were easily palpable bilaterally. There was no adenopathy. The patient has a left IJ triple-lumen catheter in place. lungs are diminished bilaterally along with scattered rhonchi heard throughout the lung griffiths. heart sounds were tachycardic and the patient went into an irregular rhythm c onsistent with atrial fibrillation. Currently heart rate is in the 150 range. Abdominal exam revealed normal bowel sounds. The abdomen was soft, non-tender, and without masses, organomegaly, or appreciable enlargement of the abdominal aorta. Extremities are showing adequate pulses and there is no cyanosis or clubbing. Skin shows multiple areas of psoriatic patches and there is no open wounds or sores Neurologically, the patient is sedated and paralyzed. Results - Laboratory Findings CBC and BMP: 12/29/19 16:06 12/29/19 16:06 PT/INR, D-dimer PT 10.7 sec (9.0-12.0) 12/29/19 16:06 INR 1.0 (<1.2) 12/29/19 16:06 Abnormal lab findings: Abnormal Labs 12/29/19 12/29/19 12/29/19 16:06 16:06 16:06 WBC 2.6 L RBC 4.03 L Hgb 12.8 L Plt Count 103 L Lymphocytes # (Manual) 0.26 L Metamyelocytes # (Man) 0.16 H Myelocytes # (Manual) 0.10 H Sodium 123 L Potassium 3.4 L Chloride 86 L Carbon Dioxide 16 L BUN 41 H Creatinine 1.90 H Glucose 180 H Plasma Lactic Acid Guille 5.9 H* Calcium 8.0 L Total Bilirubin 2.5 H AST 361 H Lactate Dehydrogenase 1816 H C-Reactive Protein 64.7 H Albumin 3.3 L - Diagnostic Findings Chest x-ray: image reviewed CT scan - chest: image reviewed Assessment and Plan Plan: 1 acute pneumococcal pneumonia. Blood culture was positive for septic focus pneumonia. The patient has extensive bilateral consolidations , intubated on a mechanical ventilator on a high PEEP low tidal volume, volume cycled mechanical ventilation. Oxygenation is borderline at this point in time. The patient is currently intubated on a mechanical ventilator. The patient is sedated. The patient is paralyzed. Hemodynamically the patient is holding his own blood pressure and the patient is not receiving any pressors. He has been associated with total of 4 L of IV fluids. He was also given a combination of Rocephin and vancomycin. 2 acute hypoxic respiratory failure secondary to above. Most recent blood gas shows a combination of respiratory and metabolic acidosis. 3 acute sepsis secondary to above 4 acute neutropenia and thrombocytopenia likely secondary to sepsis/extensive pneumonia 5 lactic acidosis secondary to above 6 acute hypochloremic hyponatremia 7 acute kidney injury 8 Hemochromatosis, history of 9 history of psoriasis and the patient has been taking some sort of a biologic immunosuppressant on outpatient basis. 10 new-onset atrial fibrillation with rapid ventricular response. Plan Discussed the case with ECMO team at [facility], the patient was felt to be a good candidate for VV ECMO ECMO Continue ventilator support and perform necessary ventilator changes continue fluid resuscitation and IV fluids and a maintenance of 150 mL an hour of normal saline Check blood cultures with are positive for strep pneumo Check sputum cultures Continue IV Rocephin and vancomycin vancomycin Keep the patient sedated with a combination of fentanyl and propofol. Use paralytics to maintain synchrony with the mechanical ventilator condition is extremely critical and the patient will be transferred for further care at [facility] and possible VV ECMO will be also delivered to maintain oxygenation. Time with Patient: Greater than 30
[2019-12-29] MEDS ORDERED: ONDANSETRON ODT 4 MG TAB PO STA (21:23)
--- NOTE | 2019-12-29 21:26 | P.PCN ---
Date of Procedure: 12/29/19 Preoperative Diagnosis: Pneumococcal septic shock Postoperative Diagnosis: Pneumococcal pneumonia with secondary septic shock Procedure(s) Performed: Intubation, central line insertion, arterial line insertion Anesthesia: local Surgeon: Kym Hagen Pathology: other Condition: critical Disposition: ICU Operative Findings: Intubation Indication: Respiratory compromise. A time-out was completed verifying correct patient, procedure, site, positioning, and implant(s) or special equipment if applicable. The patient was positioned appropriately and a #8 endotracheal tube was placed under direct laryngoscopy. The tube was anchored at 22 cm at the teeth. Correct placement was confirmed by presence of bilateral breath sounds without air sounds in the abdomen on auscultation. An end-tidal CO2 monitor was also used to confirm tracheal placement of the ET tube. A chest x-ray was ordered to assess for pneumothorax and verify endotracheal tube placement. The patient tolerated the procedure well and there were no complications. Insertion of a triple-lumen catheter Indication: Hemodynamic monitoring/Intravenous access. A time-out was completed verifying correct patient, procedure, site, positioning, and implant(s) or special equipment if applicable. The patient was placed in a dependent position appropriate for central line placement based on the vein to be cannulated. The patients left neck was prepped and draped in sterile fashion. 1% Lidocaine was used to anesthetize the surrounding skin area. A triple lumen 9F Cordis catheter was introduced into the nternal jugular vein using Seldinger technique. The catheter was threaded smoothly over the guide wire and appropriate blood return was obtained. Each lumen of the catheter was evacuated of air and flushed with sterile saline. The catheter was then sutured in place to the skin and a sterile dressing applied. Perfusion to the extremity distal to the point of catheter insertion was checked and found to be adequate. The patient tolerated the procedure well and there were no complications. Insertion of an arterial line Indication: Hemodynamic monitoring. A time-out was completed verifying correct patient, procedure, site, positioning, and implant(s) or special equipment if applicable. Allens test was performed to ensure adequate perfusion. The patients right groin was prepped and draped in sterile fashion. 1% Lidocaine was used to anesthetize the area. An 18G Arrow arterial line was introduced into right femoral artery. The catheter was threaded over the guide wire and the needle was removed with appropriate pulsatile blood return. Blood loss was minimal. The catheter was then sutured in place to the skin and a sterile dressing applied. Perfusion to the extremity distal to the point of catheter insertion was checked and found to be adequate. The patient tolerated the procedure well and there were no complications.
[2019-12-29] MEDS ORDERED: CISATRACURIUM 2 MG/ML 5 ML VIAL IV STA (21:36)
[2019-12-29] MEDS ORDERED: SODIUM BICARB 8.4% 50 ML SYR (1 MEQ/ML) IV STA (22:00)
[2019-12-29] MEDS ORDERED: SODIUM BICARB 8.4% 50 ML SYR (1 MEQ/ML) ONE (22:00)
[2019-12-29] MEDS ORDERED: EPINEPHrine 10 ML SYRINGE (0.1 MG/ML) ONE (22:00)
[2019-12-29 22:24] LABS: ABG Base Excess -11.1 mmol/L; ABG HCO3 17 mmol/L (21-25); ABG Oxygen Saturation 75.6 % (94-97); ABG PCO2 47 mmHg (35-45); ABG TCO2 19 mmol/L (19-24); Allen Test Performed? Yes
[2019-12-29 22:43] LABS: ABG PH 7.17 (7.35-7.45)
[2019-12-29 22:44] LABS: ABG PO2 50 mmHg (83-108)
--- NOTE | 2019-12-29 23:07 | P.HPIM ---
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 CT angiogram showed bilateral diffuse patchy consolidation and opacities most pronounced in the right upper lobe. Correlate for Covid pneumonia. Patient was tested negative for COVID-19. Patient was found to have elevated lactic acid level at 7.4 and magnesium 1.5, elevated ferritin, LDH CRP and pro calcitonin at 26.57. Patient left AGAINST MEDICAL ADVICE yesterday. Patient has been having worsening shortness of breath and blood cultures growing strep pneumonia and patient was called to come back to the hospital. Patient came back to the hospital upon insistence of his mother. On admission patient was tachycardic with heart rate 125, respiratory 28, pulse ox 84% on room air. Chest x-ray showed there is redemonstrated bilateral consolidations in the upper to mid lungs. Additional right basilar opacity is seen. No significant pleural effusion or pneumothorax seen. Cardiac silhouette size is within normal limits. Laboratory data showed WBC 2.6, hemoglobin 12.8 and platelets 103 and lymphocytes 0.26 and 3% bands. Laboratory data showed sodium 127, potassium 3.4, chloride 86 and BUN 41 creatinine 1.9 Lactic acid 5.8, bilirubin 2.5 and AST 361 ALT 38 and LDH 1869 CRP 64.7 COVID-19 PCR and influenza negative. proBNP 573. ABGs were sent. Patient is currently tachypneic and hypoxic. Patient was started on vancomycin and ceftriaxone and azithromycin. Review of Systems Constitutional: Patient denies any fever or chills . Patient does have generalized weakness and fatigue.. Abdomen: Patient denied nausea vomiting and diarrhea and abdominal pain. Cardiovascular: Patient denies any chest pain.no palpitations. Respiratory:Patient does have cough without sputum production. Does have shortness of breath Neurologic: Patient denied any numbness or tingling headache. Musculoskeletal: Patient denies any complaints of joint swelling or deformity. Skin: Negative Psychiatric: Negative Endocrine: No heat or cold intolerance. No recent weight gain. Genitourinary: No dysuria or hematuria. All other 14 point ROS negative except the above Past Medical History Past Medical History: Hypertension, Pneumonia Additional Past Medical History / Comment(s): psoriasis,hemochromotosis, questionable alcoholism History of Any Multi-Drug Resistant Organisms: None Reported Past Surgical History: No Surgical Hx Reported Additional Past Surgical History / Comment(s): no surgical hx Past Anesthesia/Blood Transfusion Reactions: No Reported Reaction Additional Past Anesthesia/Blood Transfusion Reaction / Comment(s): no an esthesia hx Past Psychological History: No Psychological Hx Reported Smoking Status: Never smoker Past Alcohol Use History: Occasional Past Drug Use History: None Reported - Past Family History Mother Family Medical History: No Reported History Medications and Allergies Home Medications Medication Instructions Recorded Confirmed Type hydroCHLOROthiazide [Hydrodiuril] 25 mg PO DAILY 01/26/19 12/29/19 History Allopurinol [Zyloprim] 150 mg PO DAILY 12/28/19 12/29/19 History Dexamethasone [Decadron] 6 mg PO DAILY #10 tablet 12/28/19 12/29/19 Rx Levofloxacin [Levaquin] 500 mg PO DAILY 7 Days #7 tab 12/29/19 12/29/19 Rx Allergies Allergy/AdvReac Type Severity Reaction Status Date / Time No Known Allergies Allergy Verified 12/29/19 17:16 Physical Exam Vitals: Vital Signs Temp Pulse Resp BP Pulse Ox 12/29/19 20:30 156 H 34 H 103/66 78 L 12/29/19 20:00 154 H 34 H 129/70 81 L 12/29/19 19:38 149 H 28 H 139/69 84 L 12/29/19 19:30 172 H 28 H 133/65 78 L 12/29/19 19:23 176 H 29 H 132/69 78 L 12/29/19 19:00 163 H 28 H 127/95 12/29/19 18:54 178 H 28 H 132/111 76 L 12/29/19 18:30 174 H 28 H 187/117 94 L 12/29/19 18:24 174 H 37 H 187/117 95 12/29/19 18:05 120 H 32 H 150/101 95 12/29/19 18:00 121 H 28 H 179/112 89 L 12/29/19 17:57 123 H 12/29/19 17:56 125 H 40 H 179/112 90 L 12/29/19 17:51 125 H 12/29/19 17:30 123 H 44 H 148/87 88 L 12/29/19 17:00 129 H 30 H 185/101 85 L 12/29/19 16:45 129 H 36 H 137/89 88 L 12/29/19 16:13 125 H 28 H 138/88 87 L 12/29/19 16:05 18 12/29/19 15:34 98.9 F 125 H 28 H 169/79 84 L Intake and Output 12/29/19 12/29/19 12/29/19 06:59 14:59 22:59 Other: Weight 102.058 kg ABP, PAP, CO, CI - Last 8 Hours Arterial Blood Pressure 122/58 Arterial Blood Pressure 124/65 PHYSICAL EXAMINATION: Patient is lying in the bed comfortably, awake alert and oriented.. Patient is in acute distress and using accessory muscles and tachypneic. HEENT: Normocephalic. Neck is supple. Pupils reactive. Nostrils clear. Oral cavity is moist. Ears reveal no drainage. Neck reveals no JVD, carotid bruits, or thyromegaly. CHEST EXAMINATION: Trachea is central. Symmetrical expansion. Bilateral diffuse coarse breath sounds. No wheezing.. CARDIAC: Normal S1, S2 with no gallops. No murmurs ABDOMEN: Soft. Bowel sounds normal. No organomegaly. No abdominal bruits. Extremities: reveal no edema. No clubbing or cyanosis Neurologically awake, alert, oriented x3 with well-coordinated movements. No focal deficits noted Skin: No rash or skin lesions. Psychiatric: Coperative. Nonsuicidal Musculoskeletal: No joint swelling or deformity. Normal range of motion. Results CBC & Chem 7: 12/29/19 16:06 12/29/19 16:06 Labs: Abnormal Lab Results - Last 24 Hours (Table) 12/29/19 12/29/19 12/29/19 Range/Units 16:06 16:06 16:06 WBC 2.6 L (3.8-10.6) k/uL RBC 4.03 L (4.30-5.90) m/uL Hgb 12.8 L (13.0-17.5) gm/dL Plt Count 103 L (150-450) k/uL Lymphocytes # (Manual) 0.26 L (1.0-4.8) k/uL Metamyelocytes # (Man) 0.16 H (0) k/uL Myelocytes # (Manual) 0.10 H (0) k/uL ABG pH (7.35-7.45) ABG pCO2 (35-45) mmHg ABG pO2 (83-108) mmHg ABG HCO3 (21-25) mmol/L ABG O2 Saturation (94-97) % Sodium 123 L (137-145) mmol/L Potassium 3.4 L (3.5-5.1) mmol/L Chloride 86 L (98-107) mmol/L Carbon Dioxide 16 L (22-30) mmol/L BUN 41 H (9-20) mg/dL Creatinine 1.90 H (0.66-1.25) mg/dL Glucose 180 H (74-99) mg/dL Plasma Lactic Acid Guille 5.9 H* (0.7-2.0) mmol/L Calcium 8.0 L (8.4-10.2) mg/dL Total Bilirubin 2.5 H (0.2-1.3) mg/dL AST 361 H (17-59) U/L Lactate Dehydrogenase 1816 H (313-618) U/L C-Reactive Protein 64.7 H (<10.0) mg/L Albumin 3.3 L (3.5-5.0) g/dL 12/29/19 12/29/19 12/29/19 Range/Units 19:49 20:09 20:53 WBC (3.8-10.6) k/uL RBC (4.30-5.90) m/uL Hgb (13.0-17.5) gm/dL Plt Count (150-450) k/uL Lymphocytes # (Manual) (1.0-4.8) k/uL Metamyelocytes # (Man) (0) k/uL Myelocytes # (Manual) (0) k/uL ABG pH 7.06 L* 7.12 L* (7.35-7.45) ABG pCO2 65 H 64 H (35-45) mmHg ABG pO2 65 L 60 L (83-108) mmHg ABG HCO3 18 L (21-25) mmol/L ABG O2 Saturation 81.7 L 81.0 L (94-97) % Sodium (137-145) mmol/L Potassium (3.5-5.1) mmol/L Chloride (98-107) mmol/L Carbon Dioxide (22-30) mmol/L BUN (9-20) mg/dL Creatinine (0.66-1.25) mg/dL Glucose (74-99) mg/dL Plasma Lactic Acid Guille 3.5 H* (0.7-2.0) mmol/L Calcium (8.4-10.2) mg/dL Total Bilirubin (0.2-1.3) mg/dL AST (17-59) U/L Lactate Dehydrogenase (313-618) U/L C-Reactive Protein (<10.0) mg/L Albumin (3.5-5.0) g/dL Thrombosis Risk Factor Assmnt - DVT/VTE Prophylaxis DVT/VTE Prophylaxis: Pharmacologic Prophylaxis ordered Assessment and Plan Assessment: Acute strep pneumococcal pneumonia with bilateral consolidation in the upper to mid lungs. Sepsis with strep pneumococcal septicemia. Acute hypoxic respiratory failure secondary above COVID-19 PCR rapid test negative. Elevated inflammatory markers Lymphopenia and thrombocytopenia Hypovolemic hyponatremia Hypokalemia Anion gap metabolic acidosis secondary to lactic acidosis 5.9 Acute kidney injury with creatinine of 1.9 Elevated liver enzymes AST greater than ALT Psoriasis currently on immunosuppressive therapy for the past 4 months Hemochromatosis DVT prophylaxis with heparin subcu Plan: Patient will be continued on broad-spectrum antibiotics in the home of ceftriaxone and vancomycin. IV fluids. Follow-up repeat blood cultures. Continue with oxygen therapy and patient will be transferred to MICU. Pulmonary was consulted. Prognosis guarded at this time. Discussed with the patient and his mother at bedside in detail. Time with Patient: Greater than 30
[2019-12-30 00:03] LABS: Ferritin 2410.5 ng/mL (22.0-322.0)
[2019-12-30] MEDS: SODIUM CHLORIDE 0.9% 1,000 ML IV SCH (01:30)
[2019-12-30] MEDS ORDERED: SUCCINYLCHOLINE CHLORIDE VIAL 200 MG/10 ML VIAL IV ONE (01:39)
[2019-12-30] MEDS ORDERED: DEXTROSE 5% IN WATER 100 ML with AMIODARONE 150 MG IV ONE (01:42)
[2019-12-30] MEDS ORDERED: NOREPINEPHRINE 4 MG in SODIUM CHLORIDE 0.9% 250 ML IV SCH (01:45)
[2019-12-30 02:20] VITALS: BP 99/70; PULSE 147
[2019-12-30] MEDS ORDERED: VANCOMYCIN 1,750 MG in SODIUM CHLORIDE 0.9% 500 ML 500 ML IVPB SCH (09:00)
[2019-12-30] MEDS ORDERED: FAMOTIDINE 20 MG/2 ML VIAL IV SCH (09:00)
[2019-12-30] MEDS ORDERED: CEFEPIME 2 GM in SODIUM CHLORIDE 0.9% 100 ML IVPB SCH (09:00)
[2019-12-30] MEDS ORDERED: AZITHROMYCIN 500 MG in SODIUM CHLORIDE 0.9% 250 ML IVPB SCH (21:00)
== END 2019-12-30 00:35 | disposition short-term general hospital (02) | DRG 871 ==
LOC: EC 15:30 → 3SCARD 17:22 → 2SICU 18:47
PROVIDERS: ADMIT Internal Medicine; ATTEND Internal Medicine
PROC: 5A1935Z Respiratory Ventilation, Less than 24 Consecutive Hours (ICD-10-PCS; principal; 2019-12-29)
PROC: 04HY32Z Insertion of Monitoring Device into Lower Artery, Percutaneous Approach (ICD-10-PCS; 2019-12-29)
PROC: 4A133B1 Monitoring of Arterial Pressure, Peripheral, Percutaneous Approach (ICD-10-PCS; 2019-12-29)
PROC: 4A133J1 Monitoring of Arterial Pulse, Peripheral, Percutaneous Approach (ICD-10-PCS; 2019-12-29)
PROC: 02HV33Z Insertion of Infusion Device into Superior Vena Cava, Percutaneous Approach (ICD-10-PCS; 2019-12-29)
PROC: 5A12012 Performance of Cardiac Output, Single, Manual (ICD-10-PCS; 2019-12-29)
PROC: 0BH17EZ Insertion of Endotracheal Airway into Trachea, Via Natural or Artificial Opening (ICD-10-PCS; 2019-12-29)
PROC: 3E033XZ Introduction of Vasopressor into Peripheral Vein, Percutaneous Approach (ICD-10-PCS; 2019-12-30)
DX: A40.3 Sepsis due to Streptococcus pneumoniae (principal); J96.01 Acute respiratory failure with hypoxia; R65.21 Severe sepsis with septic shock; J13 Pneumonia due to Streptococcus pneumoniae; N17.9 Acute kidney failure, unspecified; E87.4 Mixed disorder of acid-base balance; E87.1 Hypo-osmolality and hyponatremia; Z20.828 Contact with and (suspected) exposure to other viral communicable diseases; I48.91 Unspecified atrial fibrillation; D69.59 Other secondary thrombocytopenia; I10 Essential (primary) hypertension; L40.9 Psoriasis, unspecified; E83.119 Hemochromatosis, unspecified; D72.810 Lymphocytopenia; E87.6 Hypokalemia; R74.01 Elevation of levels of liver transaminase levels; E86.1 Hypovolemia; Z79.899 Other long term (current) drug therapy; Z87.01 Personal history of pneumonia (recurrent)
CPT/HCPCS: 36415; 36600; 71045; 80053; 82728; 82805; 83605; 83615; 83735; 83880; 84145; 85025; 85610; 85730; 86140; 87040; 87502; 87635; 92950; 93005; 94640; 96361; 96365; 96366; 96367; 96375; 99291